=== PATIENT | female | born 1975 ===

== ENCOUNTER 2017-04-08 19:45 | Emergency (ER) | payer OTHER ==
[2017-04-08 21:12] VITALS: BP 93/53
--- NOTE | 2017-04-08 21:40 | RAD ---
Indication: Right middle finger injury. 3 views of the right middle finger demonstrates no fracture. No other bone or joint abnormality is noted. IMPRESSION: No fracture of the right middle finger is noted.
--- NOTE | 2017-04-08 21:51 | UC ---
Hand/Wrist HPI - HPI Summary HPI Summary: Pt states 1 week ago was ziplining. pt sustained injury to right middle finger when changed grasp positions. PT states had significant swelling along finger, primarily PIP. Pt states swelling has improved, but still some and pain with flexion. Pt concerned for fx. no open wound. No analgesia taken. Applied ice early in process. Pt is LHD Pt's medication reviewed at this visit - History Of Current Complaint Chief Complaint: UCUpperExtremity Stated Complaint: FINGER INJURY Time Seen by Provider: 04/08/17 21:17 Hx Obtained From: Patient Hx Last Menstrual Period: 1 WEEK AGO Onset/Duration: Sudden Onset Severity Initially: Moderate Severity Currently: Mild Character Of Pain: Aching, Stiffness Aggravating Factor(s): Movement Alleviating: Rest Associated Signs And Symptoms: Positive: Swelling. Negative: Redness, Bruising , Fever, Numbness/Tingling - Allergies/Home Medications Allergies/Adverse Reactions: Allergies Allergy/AdvReac Type Severity Reaction Status Date / Time Pseudoephedrine Allergy Intermediate Anxiety Verified 04/08/17 21:12 [From [facility]] Home Medications: Home Medications NK [No Home Medications Reported] 04/08/17 [History Confirmed 04/08/17] PMH/Surg Hx/FS Hx/Imm Hx Previously Healthy: Yes - Surgical History Surgical History: None - Social History Occupation: Employed Full-time Lives: With Family Alcohol Use: Occasionally Substance Use Type: None Smoking Status (MU): Never Smoked Tobacco Review of Systems Constitutional: Negative Skin: Negative Motor: Other - right middle digit Musculoskeletal: Other: - right middle finger Neurological: Negative All Other Systems Reviewed And Are Negative: Yes Physical Exam Triage Information Reviewed: Yes Appearance: Well-Appearing, No Pain Distress, Well-Nourished Vital Signs: Initial Vital Signs Temp 98.3 F 04/08/17 21:08 Pulse 62 04/08/17 21:08 Resp 16 04/08/17 21:08 BP 93/53 04/08/17 21:08 Pulse Ox 100 04/08/17 21:08 Vital Signs Reviewed: Yes Eye Exam: Normal ENT Exam: Normal ENT: Positive: Normal ENT inspection Dental Exam: Normal Neck exam: Normal Neck: Positive: Supple, Nontender Respiratory Exam: Normal Respiratory: Positive: Chest non-tender, Lungs clear, Normal breath sounds, No respiratory distress, No accessory muscle use Cardiovascular: Positive: Other: - 2+ radial, 2+ ulnar CBT < 2 sec Musculoskeletal: Positive: Other: - l+ full extension right middle + full flexion at DIP + flexion to 90 pip + full flexion MCP No crepits mild fusiform edema at PIP minimal tender no erythema no laxity with lateral ligament testing Neurological Exam: Normal Psychological Exam: Normal Skin Exam: Normal Diagnostics - Radiology No standard instances Xray Interpretation: No Acute Changes Radiology Interpretation Completed By: Radiologist - no fx right middle Hand/Wrist Course/Dx - Course Course Of Treatment: Pt with persistent, yet improved pain s/p zip itz injury no erythema, open wounds or concern for infection. will image for fx. splint - metal. ice. motrin/apap. pt comfortable with plan - Differential Dx/Diagnosis Provider Diagnoses: finger sprain Discharge - Discharge Plan Condition: Stable Disposition: HOME Patient Education Materials: Finger Sprain (ED) Referrals: Kelly Castellon MD [Primary Care Provider] - Additional Instructions: - wear splint for comfort and support - Okay to alternate ibuprofen (Advil, Motrin) and tylenol every 3 hours for pain. Take with food. Do NOT take for more than 4-5 days - Okay to apply ice (Wrapped in a towel) 20 minutes at a time, 2-3 times a day - contact your doctor to schedule a follow-up appointment if you continue to have pain or symptoms
== END 2017-04-08 22:10 | disposition home or self-care (01) ==
LOC: UCEAST 19:45
DX: S63.612A Unspecified sprain of right middle finger, initial encounter (principal); X58.XXXA Exposure to other specified factors, initial encounter; Y93.89 Activity, other specified; Y92.9 Unspecified place or not applicable
CPT/HCPCS: 73140; 99211; G0463